=== PATIENT | female | born 1990 | race Caucasian/White ===

== ENCOUNTER → 2017-10-04 | Outpatient (REF) | payer MEDICAID ==
[2015-07-12 10:28] VITALS: BMI 23.6
[~2017-10-04] MED LIST: ACET-1718 PO; CIP500 PO; CODE118S5 PO; FERR159T PO; HYDR-385 PO; IBUP800T37 PO; KET10 PO; LAM25 PO; LOR5 PO; LOR5/325 PO; MULT-1335 PO; PREN1TAB44 PO; PROM-110 PO
[2017-10-04 16:09] LABS: PLATELET COUNT, AUTOMATED 286 K/uL (150-450)
== END ==
PROVIDERS: ATTEND Physician Assistant Medical
DX: R10.9 Unspecified abdominal pain (principal)
CPT/HCPCS: 82040; 82247; 82310; 82374; 82435; 82565; 82947; 84075; 84132; 84155; 84295; 84450; 84460; 84520; 85025

== ENCOUNTER → 2017-10-11 | Outpatient (REF) | payer OTHER, MEDICAID ==
[2015-07-12 10:28] VITALS: BMI 23.6
== END ==
PROVIDERS: ATTEND Physician Assistant Medical
DX: R10.9 Unspecified abdominal pain (principal); R19.7 Diarrhea, unspecified
CPT/HCPCS: 82274; 83630; 87045; 87177

== ENCOUNTER 2018-01-05 14:19 | Emergency (ER) | payer OTHER, MEDICAID ==
[2015-07-12 10:28] VITALS: Wt 69.9 kg
[2018-01-05 15:07] LABS: PLATELET COUNT, AUTOMATED 302 K/uL (150-450)
--- NOTE | 2018-01-05 16:24 | ER Report ---
History and Physical Time Seen By MD: 14:22 Hx. 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 She states that it was just a small amount of blood with no clots or tissue noted. She states that she is 5-6 weeks . She denies any vaginal discharge. She has not noted any pelvic pain. She states that she had a few seconds of sharp right lower abdominal pain but since has resolved. She denies any nausea or vomiting. She denies any fever. She is . REVIEW OF SYSTEMS: Constitutional: No fever, no chills. Cardiovascular: No chest pain, no palpitations. Respiratory: No cough, no shortness of breath. Gastrointestinal: No abdominal pain, no vomiting. Genitourinary: No hematuria. Musculoskeletal: No back pain. Skin: No rashes. Neurological: No headache. Allergies: Coded Allergies: Sulfa (Sulfonamide Antibiotics) (Verified Allergy, Severe, ANAPHYLAXIS, 01/05/18) latex (Verified Allergy, Intermediate, RASH, 01/05/18) epidermal scaling and bleeding Home Meds Reported Medications Ferrous Sulfate, Dried (IRON) 159 Mg Tablet.er, 159 MG PO DAILY 04/12/15 Discontinued Scripts Hydrocodone Bit/Acetaminophen (HYDROCODON-ACETAMINOPHEN 5-325) 1 Each Tablet, 1 EACH PO Q4-6H Y for PAIN, #30 TAB Prov:LEELA AHMADI MD 11/28/16 Ketorolac Tromethamine (KETOROLAC TROMETHAMINE) 10 Mg Tab, 10 MG PO Q6H, #20 TAB Prov:LEELA AHMADI MD 11/28/16 Promethazine Hcl (PROMETHAZINE HCL) 25 Mg Tablet, 25 MG PO Q8H Y for NAUSEA/ VOMITING, #12 TAB Prov:ELSA ALLRED 11/22/16 Reviewed Nurses Notes: Yes Old Medical Records Reviewed: Yes Hx Smoking: Yes (2 1/2 yrs- 1 pack would last week and a half) Smoking Status: Former Smoker Exposure to Second Hand Smoke?: Yes Hx Substance Use Disorder: No Hx Alcohol Use: No Constitutional Vital Sign - Last 24 Hours 01/05/18 14:44 Temp 98.4 Pulse 94 Resp 16 B/P (MAP) 118/71 Pulse Ox 100 O2 Delivery Room Air Physical Exam General Appearance: The patient is alert, has no immediate need for airway protection and no signs of toxicity. Patient appears to be in no acute distress. Eyes: Pupils equal and round no pallor or injection. ENT, Mouth: Mucous membranes are moist. Respiratory: There are no retractions, lungs are clear to auscultation. Cardiovascular: Regular rate and rhythm. Gastrointestinal: Abdomen is soft and non tender, no masses, bowel sounds normal. Pelvic exam: The vulva was normal no lesions. The vagina did not have significant discharge. The cervix was closed no bleeding and no purulent drainage. The uterus was normal size and non tender. The adnexa had no masses and no tenderness. 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 Skin: Warm and dry, no rashes. Musculoskeletal: Neck is supple non tender. Extremities are nontender, nonswollen and have full range of motion. DIFFERENTIAL DIAGNOSIS: After history and physical exam differential diagnosis was considered for vaginal bleeding including but not limited to ectopic , menses, miscarriage, and dysfunctional uterine bleeding. Medical Decision Making Data Points Result Diagram: 01/05/18 1500 01/05/18 1500 Laboratory Hematology Test 01/05/18 15:00 01/05/18 15:25 Red Blood Count 4.88 M/uL (4.17-5.56) Mean Corpuscular Volume 85.7 fL (80.0-96.0) Mean Corpuscular Hemoglobin 29.5 pg (26.0-33.0) Mean Corpuscular Hemoglobin Concent 34.4 g/dL (32.0-36.0) Red Cell Distribution Width 15.2 % (11.5-14.5) Mean Platelet Volume 7.8 fL (7.2-11.1) Neutrophils (%) (Auto) 68.4 % (39.4-72.5) Lymphocytes (%) (Auto) 23.4 % (17.6-49.6) Monocytes (%) (Auto) 5.2 % (4.1-12.4) Eosinophils (%) (Auto) 2.2 % (0.4-6.7) Basophils (%) (Auto) 0.8 % (0.3-1.4) Nucleated RBC Relative Count (auto) 0.0 /100WBC Neutrophils # (Auto) 6.0 K/uL (2.0-7.4) Lymphocytes # (Auto) 2.1 K/uL (1.3-3.6) Monocytes # (Auto) 0.5 K/uL (0.3-1.0) Eosinophils # (Auto) 0.2 K/uL (0.0-0.5) Basophils # (Auto) 0.1 K/uL (0.0-0.1) Nucleated RBC Absolute Count (auto) 0.00 K/uL Sodium Level 141 mmol/L (137-145) Potassium Level 3.5 mmol/L (3.5-5.0) Chloride Level 107 mmol/L (98-107) Carbon Dioxide Level 22 mmol/L (22-31) Blood Urea Nitrogen 5 mg/dl (7-18) Creatinine 0.70 mg/dl (0.52-1.04) Glomerular Filtration Rate Calc > 60.0 Random Glucose 106 mg/dl (75-110) Calcium Level 8.8 mg/dl (8.4-10.2) Total Bilirubin 1.3 mg/dl (0.2-1.3) Aspartate Amino Transf (AST/SGOT) 23 U/L (0-35) Alanine Aminotransferase (ALT/SGPT) 23 U/L (0-56) Alkaline Phosphatase 70 U/L (0-126) Total Protein 7.2 g/dl (6.3-8.2) Albumin 4.0 g/dl (3.5-5.0) Human Chorionic Gonadotropin, Quant 32912 mIU/ml Urine Color Yellow Urine Clarity Clear Urine pH 6.0 pH (4.8-9.5) Urine Specific [place] 1.010 Urine Protein Negative mg/dL (NEGATIVE) Urine Glucose (UA) Negative mg/dL (NEGATIVE) Urine Ketones Negative mg/dL (NEGATIVE) Urine Blood Small (NEGATIVE) Urine Nitrite Negative (NEGATIVE) Urine Bilirubin Negative (NEGATIVE) Urine Urobilinogen 2.0 mg/dL (0.2-1.9) Urine Leukocyte Esterase Negative (NEGATIVE) Urine RBC <1 /HPF (0-2/HPF) Urine WBC 2 /HPF (0-5/HPF) Urine Squamous Epithelial Cells Many /LPF (</=FEW) Urine Transitional Epithelial Cells Few /LPF (NONE-FEW) Urine Bacteria Negative /HPF (NONE-FEW) Urine Mucus None /HPF (NONE-FEW) Chemistry Test 01/05/18 15:00 01/05/18 15:25 White Blood Count 8.8 k/uL (4.5-11.0) Red Blood Count 4.88 M/uL (4.17-5.56) Hemoglobin 14.4 g/dL (12.0-16.0) Hematocrit 41.8 % (34.0-47.0) Mean Corpuscular Volume 85.7 fL (80.0-96.0) Mean Corpuscular Hemoglobin 29.5 pg (26.0-33.0) Mean Corpuscular Hemoglobin Concent 34.4 g/dL (32.0-36.0) Red Cell Distribution Width 15.2 % (11.5-14.5) Platelet Count 302 K/uL (150-450) Mean Platelet Volume 7.8 fL (7.2-11.1) Neutrophils (%) (Auto) 68.4 % (39.4-72.5) Lymphocytes (%) (Auto) 23.4 % (17.6-49.6) Monocytes (%) (Auto) 5.2 % (4.1-12.4) Eosinophils (%) (Auto) 2.2 % (0.4-6.7) Basophils (%) (Auto) 0.8 % (0.3-1.4) Nucleated RBC Relative Count (auto) 0.0 /100WBC Neutrophils # (Auto) 6.0 K/uL (2.0-7.4) Lymphocytes # (Auto) 2.1 K/uL (1.3-3.6) Monocytes # (Auto) 0.5 K/uL (0.3-1.0) Eosinophils # (Auto) 0.2 K/uL (0.0-0.5) Basophils # (Auto) 0.1 K/uL (0.0-0.1) Nucleated RBC Absolute Count (auto) 0.00 K/uL Glomerular Filtration Rate Calc > 60.0 Calcium Level 8.8 mg/dl (8.4-10.2) Total Bilirubin 1.3 mg/dl (0.2-1.3) Aspartate Amino Transf (AST/SGOT) 23 U/L (0-35) Alanine Aminotransferase (ALT/SGPT) 23 U/L (0-56) Alkaline Phosphatase 70 U/L (0-126) Total Protein 7.2 g/dl (6.3-8.2) Albumin 4.0 g/dl (3.5-5.0) Human Chorionic Gonadotropin, Quant 92201 mIU/ml Urine Color Yellow Urine Clarity Clear Urine pH 6.0 pH (4.8-9.5) Urine Specific [place] 1.010 Urine Protein Negative mg/dL (NEGATIVE) Urine Glucose (UA) Negative mg/dL (NEGATIVE) Urine Ketones Negative mg/dL (NEGATIVE) Urine Blood Small (NEGATIVE) Urine Nitrite Negative (NEGATIVE) Urine Bilirubin Negative (NEGATIVE) Urine Urobilinogen 2.0 mg/dL (0.2-1.9) Urine Leukocyte Esterase Negative (NEGATIVE) Urine RBC <1 /HPF (0-2/HPF) Urine WBC 2 /HPF (0-5/HPF) Urine Squamous Epithelial Cells Many /LPF (</=FEW) Urine Transitional Epithelial Cells Few /LPF (NONE-FEW) Urine Bacteria Negative /HPF (NONE-FEW) Urine Mucus None /HPF (NONE-FEW) Urinalysis Test 01/05/18 15:25 Urine Color Yellow Urine Clarity Clear Urine pH 6.0 pH (4.8-9.5) Urine Specific [place] 1.010 Urine Protein Negative mg/dL (NEGATIVE) Urine Glucose (UA) Negative mg/dL (NEGATIVE) Urine Ketones Negative mg/dL (NEGATIVE) Urine Blood Small (NEGATIVE) Urine Nitrite Negative (NEGATIVE) Urine Bilirubin Negative (NEGATIVE) Urine Urobilinogen 2.0 mg/dL (0.2-1.9) Urine Leukocyte Esterase Negative (NEGATIVE) Urine RBC <1 /HPF (0-2/HPF) Urine WBC 2 /HPF (0-5/HPF) Urine Squamous Epithelial Cells Many /LPF (</=FEW) Urine Transitional Epithelial Cells Few /LPF (NONE-FEW) Urine Bacteria Negative /HPF (NONE-FEW) Urine Mucus None /HPF (NONE-FEW) EKG/Imaging Imaging Pelvic US: IMPRESSION: 1. There is intrauterine . The is in the mid endometrium just at the dividing a portion of the bicornuate appearance of the uterus. A heart tones could be visualized however cannot be obtained by M-mode. This is most likely due to very early . However suggest close follow- up to assess for early viable . 2. Right ovary is normal. Left ovary could not be visualized. 3. There may be mild increase in pelvic vasculature which is nonspecific but could be due to pelvic congestion syndrome. I called report to ERIN GANN at 01/05/2018 4:41 PM. Report Dictated By: Phil Wynn at 01/05/2018 4:35 PM Report E-Signed By: Phil Wynn at 01/05/2018 4:42 PM ED Course/Re-evaluation ED Course Will obtain labs and pelvic ultrasound. - 01/05/2018 4:55:52 pm - discussed all labs and imaging with patient. There is intrauterine noted. No abnormality noted. All labs are essentially normal. Her cervical os is closed. Discussed that this could just be a normal also could be a threatened given her symptoms thus far however seems to be fairly minimal bleeding at this time and no active bleeding noted now. Decision to Disposition Date: Jan 05, 2018 Decision to Disposition Time: 16:56 Depart Departure Latest Vital Signs Vital Signs Date Time Temp Pulse Resp B/P (MAP) Pulse Ox O2 Delivery O2 Flow Rate FiO2 01/05/18 14:44 98.4 94 16 118/71 100 Room Air Impression: Primary Impression: First trimester bleeding Condition: Improved Disposition: HOME OR SELF-CARE Patient Instructions: Dysfunctional Uterine Bleeding (ED), First Trimester (ED) Additional Instructions: Stay well-hydrated. Follow-up with your OB in 2-3 days. If having any worsening or concerning symptoms may return to the emergency department. ERIN GANN PA-C Jan 05, 2018 16:24
--- NOTE | 2018-01-05 16:44 | RADIOLOGY IMAGING REPORT ---
FACILITY: [facility] [place] PATIENT NAME: Genet Villanueva : 1990 MR: [id number] V: [id number] EXAM DATE: ORDERING PHYSICIAN: ERIN GANN TECHNOLOGIST: Location: [facility] Patient: Genet Villanueva : 1990 Visit/Account:[id number] Date of Sevice: 01/05/2018 OB Ultrasound < 14 weeks Additional Pertinent history: Vaginal bleeding. Early . COMPARISON STUDIES: None available FINDINGS: Gestational sac: intrauterine and unremarkable Yolk sac: Visualized pole: Visualized cardiac activity: heart tones were identified but were unable to be captured on M-mode. Estimated gestational age: 5 weeks and 6 days based on average [place]-rump length 2.3 mm. MAT: 08/26/2018 by clinical and 08/30/2017 by ultrasound. Subchorionic hemorrhage: none Uterus: The uterus appears to show a bicornuate appearance. The gestational sac is at the proximal po rtion of the bicornuate in the midline, the mid endometrium. There appears to be a vaginal cyst measu ring 1 cm. Maternal ovaries: Right ovary is normal with normal blood flow. Left ovary was not visualized. Adnexa: No adnexal mass lesion or focal abnormality. There may be mildly increased pelvic vasculature present. Free pelvic fluid: none IMPRESSION: 1. There is intrauterine . The is in the mid endometrium just at the dividing a po rtion of the bicornuate appearance of the uterus. A heart tones could be visualized however can not be obtained by M-mode. This is most likely due to very early . However suggest close fol low-up to assess for early viable . 2. Right ovary is normal. Left ovary could not be visualized. 3. There may be mild increase in pelvic vasculature which is nonspecific but could be due to pelvic c ongestion syndrome. I called report to ERIN GANN at 01/05/2018 4:41 PM. Report Dictated By: Phil Wynn at 01/05/2018 4:35 PM Report E-Signed By: Phil Wynn at 01/05/2018 4:42 PM WSN:[id number]
[2018-01-05 17:10] VITALS: BP 95/67
== END 2018-01-05 17:16 | disposition home or self-care (01) ==
LOC: ER 14:38
DX: O20.9 Hemorrhage in early pregnancy, unspecified (principal); Z3A.01 Less than 8 weeks gestation of pregnancy
CPT/HCPCS: 76817; 81001; 82040; 82247; 82310; 82374; 82435; 82565; 82947; 84075; 84132; 84155; 84295; 84450; 84460; 84520; 84702; 85025; 99284

== ENCOUNTER 2018-01-25 14:34 | Outpatient (RCR) | payer OTHER, MEDICAID ==
[2015-07-12 10:28] VITALS: Wt 75.9 kg
[2018-01-10 12:03] VITALS: BP 107/64
[2018-01-10 12:52] LABS: PLATELET COUNT, AUTOMATED 273 K/uL (150-450)
--- NOTE | 2018-01-10 16:48 | ONCOLOGY CONSULTATION ---
EVENT DATE January 10, 2018 REFERRING PHYSICIAN SHIRA Calderón REASON FOR CONSULTATION Evaluation and management of high vitamin B12. HISTORY OF PRESENT ILLNESS Patient is a 27-year-old female with insignificant past medical history who was found on multiple occasions to have high vitamin B12 level. Her B12 level on November 21, 2017 was 1474, and on November 21, 2017 it was 1516. As per patient, she was on multivitamins which were stopped around two years ago. Patient is asymptomatic and denies any constitutional symptoms. PAST MEDICAL HISTORY Insignificant. PAST SURGICAL HISTORY 1. Eye surgery for lazy eye. 2. Cholecystectomy on November 28, 2016. 3. Appendectomy on November 28, 2016. SOCIAL HISTORY Patient is single with two children. 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 Denies any abuse of tobacco, alcohol or illicit drugs. FAMILY HISTORY Maternal great grandmother and maternal grandfather both had cancer, but she does not know exactly the type. CURRENT MEDICATIONS Ferrous sulfate 159 mg tablet daily. ALLERGIES SULFA, and she does not know exactly the reaction. REVIEW OF SYSTEMS CONSTITUTIONAL: No appetite or weight change. No fever, chills or sweating. No recent infection. HEENT: Ears: No tinnitus or hearing problem. Nose: No nasal discharge or epistaxis. Throat: No sore throat or mouth ulcers. Eyes: No diplopia or visual changes. RESPIRATORY: No shortness of breath. No cough, expectoration or hemoptysis. CARDIOVASCULAR: No chest pain, orthopnea, or paroxysmal nocturnal dyspnea (PND) . No edema. No palpitations. GASTROINTESTINAL: She has occasional nausea or vomiting. No diarrhea or constipation. No change in bowel movements. No heartburn or swallowing difficulties. No abdominal pain. No jaundice. No hematemesis, melena or rectal bleeding. GENITOURINARY: No hematuria or dysuria. MUSCULOSKELETAL: No pain in the muscles, joints or bones. NEUROLOGICAL: No tingling or numbness in the hands or feet. No headaches or convulsions. HEMATOLOGIC/LYMPHATIC: No bleeding. She bruises easily. No weakness or fatigue. No enlarged lymph nodes. SKIN: No skin rash or lumps. PSYCHIATRIC: No anxiety or depression. PHYSICAL EXAMINATION GENERAL: Looks stable. Well-developed, well-nourished, and in no acute distress. VITAL SIGNS: Blood pressure 107/64, pulse 82 per minute, respirations 16 per minute, temperature 97.3, pulse ox 96% on room air. HEENT: Head: Atraumatic. No sinus tenderness to palpation. Eyes: No icterus or conjunctivitis. Mouth and Throat: No oral thrush or mucositis. NECK: Supple. No cervical or supraclavicular lymphadenopathy. LUNGS: Clear to auscultation and percussion bilaterally. HEART: Regular rate and rhythm. No gallops, murmurs, clicks or rubs. ABDOMEN: Soft and lax. No tenderness. No hepatosplenomegaly. No masses. EXTREMITIES: No cyanosis, clubbing or edema. LYMPHATICS: No peripheral lymphadenopathy. NEUROLOGICAL: Conscious, alert and oriented times three. No focal motor or sensory deficits. PSYCHIATRIC: Mood and affect appear normal. SKIN: No skin rash, bruise or purpuric eruption. ASSESSMENT 1. High level of vitamin B12 around 1500. As vitamin B12 is a water soluble vitamin, I do not think it can be deposited in the body, so it will not be harmful and excess vitamin B12 would be secreted in the urine. The patient was on multivitamins which were stopped around two years ago, and the stores of vitamin B12 may take three years to start to deplete. There was association between myeloproliferative disorder and high vitamin B12, and for this reason I am planning to check her CBC to see if there will be any problem with that in her blood count. If there will be high white count or platelet or red blood cells, then I will investigate for myeloproliferative disorder, but if the CBC comes back normal, no further workup will be required. I will repeat her vitamin B12 level and I will also check her methylmalonic acid assay. I explained that to the patient and she is agreeable with the plan of management. I am planning to see her in a week for further evaluation and management. PLAN 1. CBC. 2. Vitamin B12 level. 3. Methylmalonic acid assay. 4. Patient to return in one week for further evaluation and management. 5. Patient is to contact us for any new concern or complaints. RENALDOD
[2018-01-25 14:44] VITALS: BP 105/65
--- NOTE | 2018-01-25 18:00 | ONCOLOGY FOLLOW UP NOTE ---
EVENT DATE: January 25, 2018 DIAGNOSIS High level of vitamin B12. CHIEF COMPLAINT Patient is here today for followup of her high vitamin B12 level. HEMATOLOGY HISTORY Patient is a 27-year-old female with insignificant past medical history who was found on multiple occasions to have high vitamin B12 level. Her B12 level on November 21, 2017 was 1474, and on November 21, 2017 it was 1516. As per patient, she was on multivitamins which were stopped around two years ago. Patient is asymptomatic and denies any constitutional symptoms. Repeat CBC showed white count 7.8, hemoglobin 13.6, hematocrit 39.7, platelets 273,000. Vitamin B12 level was within the normal range at 865, and methylmalonic acid was normal at less than 0.10. HISTORY OF PRESENT ILLNESS The patient is here today for followup of her high vitamin B12 level. She is totally asymptomatic today. PAST MEDICAL HISTORY Insignificant. PAST SURGICAL HISTORY 1. Eye surgery for lazy eye. 2. Cholecystectomy on November 28, 2016. 3. Appendectomy on November 28, 2016. SOCIAL HISTORY Patient is single with two children. 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 Denies any abuse of tobacco, alcohol or illicit drugs. FAMILY HISTORY Maternal great grandmother and maternal grandfather both had cancer, but she does not know exactly the type. CURRENT MEDICATIONS Ferrous sulfate 159 mg tablet daily. ALLERGIES SULFA, and she does not know exactly the reaction. REVIEW OF SYSTEMS CONSTITUTIONAL: No appetite or weight change. No fever, chills or sweating. No recent infection. HEENT: Ears: No tinnitus or hearing problem. Nose: No nasal discharge or epistaxis. Throat: No sore throat or mouth ulcers. Eyes: No diplopia or visual changes. RESPIRATORY: No shortness of breath. No cough, expectoration or hemoptysis. CARDIOVASCULAR: No chest pain, orthopnea, or paroxysmal nocturnal dyspnea (PND) . No edema. No palpitations. GASTROINTESTINAL: She has occasional nausea or vomiting. No diarrhea or constipation. No change in bowel movements. No heartburn or swallowing difficulties. No abdominal pain. No jaundice. No hematemesis, melena or rectal bleeding. GENITOURINARY: No hematuria or dysuria. MUSCULOSKELETAL: No pain in the muscles, joints or bones. NEUROLOGICAL: No tingling or numbness in the hands or feet. No headaches or convulsions. HEMATOLOGIC/LYMPHATIC: No bleeding. She bruises easily. No weakness or fatigue. No enlarged lymph nodes. SKIN: No skin rash or lumps. PSYCHIATRIC: No anxiety or depression. PHYSICAL EXAMINATION GENERAL: Looks stable. Well-developed, well-nourished, and in no acute distress. VITAL SIGNS: Blood pressure 105/65, pulse 85 per minute, respirations 16 per minute, temperature 98.6, pulse ox 98% on room air. HEENT: Head: Atraumatic. No sinus tenderness to palpation. Eyes: No icterus or conjunctivitis. Mouth and Throat: No oral thrush or mucositis. NECK: Supple. No cervical or supraclavicular lymphadenopathy. LUNGS: Clear to auscultation and percussion bilaterally. HEART: Regular rate and rhythm. No gallops, murmurs, clicks or rubs. ABDOMEN: Soft and lax. No tenderness. No hepatosplenomegaly. No masses. EXTREMITIES: No cyanosis, clubbing or edema. LYMPHATICS: No peripheral lymphadenopathy. NEUROLOGICAL: Conscious, alert and oriented times three. No focal motor or sensory deficits. PSYCHIATRIC: Mood and affect appear normal. SKIN: No skin rash, bruise or purpuric eruption. DIAGNOSTIC DATA CBC showed white count 7.8, hemoglobin 13.6, hematocrit 39.7, platelets 273, 000. Vitamin B12 was 865. Methylmalonic acid less than 0.10. ASSESSMENT High level of vitamin B12 around 1500. Repeat B12 level came back normal at 865 and methylmalonic acid assay was normal at less than 0.10. Her CBC was totally normal with white count 7.8, hemoglobin 13.6 and platelet count 273, 000. No further workup is required. I am planning to refer the patient back to her primary care provider. I will be more than happy to see her in the future for any hemorrhoidal abnormalities. PLAN 1. Patient to continue followup with her primary care provider. 2. I will be more than happy to see the patient in the future if she will develop any hematological abnormalities. 3. Patient is to contact us for any new concern or complaints. ARY
== END 2018-03-01 10:32 | disposition home or self-care (01) ==
LOC: ONC 14:34
PROVIDERS: ATTEND Internal Medicine Hematology
DX: R74.8 Abnormal levels of other serum enzymes (principal)
CPT/HCPCS: 36415; 82607; 83921; 85025; 99202; 99212

== ENCOUNTER 2018-06-06 18:13 | Emergency (ER) | payer MEDICAID, OTHER ==
[2015-07-12 10:28] VITALS: Wt 88.0 kg
[2018-06-06] MEDS ORDERED: PREN-127 PO (18:23)
--- NOTE | 2018-06-06 18:23 | ER Report ---
History and Physical Time Seen By MD: 18:23 Hx. of Stated Complaint: Patient with bump near rectum. States started today and it hurts to sit HPI/ROS CHIEF COMPLAINT: swelling and pain at rectum HISTORY OF PRESENT ILLNESS: This is a 27 year old female. She is having pain in the rectal area with an area of pain and swelling. Hurts to sit. No drainage. No fevers or chills. She is . Allergies: Coded Allergies: Sulfa (Sulfonamide Antibiotics) (Verified Allergy, Severe, ANAPHYLAXIS, 06/06/18) latex (Verified Allergy, Intermediate, RASH, 06/06/18) epidermal scaling and bleeding Home Meds Reported Medications Vits W-Ca,Fe,Fa(<1MG) ( VITAMINS) 1 Each Tablet, 1 EACH PO DAILY, TAB 06/06/18 Discontinued Reported Medications Ferrous Sulfate, Dried (IRON) 159 Mg Tablet.er, 159 MG PO DAILY 04/12/15 Reviewed Nurses Notes: Yes Hx Smoking: Yes (2 1/2 yrs- 1 pack would last week and a half) Smoking Status: Former Smoker Exposure to Second Hand Smoke?: Yes Hx Substance Use Disorder: No Hx Alcohol Use: No Constitutional Vital Sign - Last 24 Hours 06/06/18 06/06/18 18:18 18:45 Temp 98.1 Pulse 99 90 Resp 16 16 B/P (MAP) 131/83 96/68 (77) Pulse Ox 96 96 O2 Delivery Room Air Physical Exam General: Alert, anxious. Rectum: Has a thrombosed hemorrhoid which is swollen and painful. No other problems noted. Medical Decision Making ED Course/Re-evaluation ED Course Procedure: Evacuation of thrombosed external hemorrhoid. The patient has a painful thrombosed external hemorrhoid. Based on the patient's significant pain from hemorrhoid we elected to evacuate the thrombosis. I informed the patient of potential complications including infection and bleeding and the patient agreed to the procedure. The patient was placed on their side. The area was prepped with betadyne and anesthetized with lidocaine and epinephrine. An incision was made in the thrombosed hemorrhoid and the thrombosis was evacuated. A dressing was applied. There were no complications. The procedure was performed by myself. Decision to Disposition Date: Jun 06, 2018 Decision to Disposition Time: 18:38 Depart Departure Latest Vital Signs Vital Signs Date Time Temp Pulse Resp B/P (MAP) Pulse Ox O2 Delivery O2 Flow Rate FiO2 06/06/18 18:45 90 16 96/68 (77) 96 06/06/18 18:18 98.1 Room Air Impression: Primary Impression: External thrombosed hemorrhoids Condition: Improved Disposition: HOME OR SELF-CARE Patient Instructions: Thrombosed Hemorrhoid (ED) Additional Instructions: Keep the area clean. Several times a day for the next few days, you can sit in a hot/warm bath and soak the area for at least 30 minutes. After bowel movements, you can do soaks, or use a soft wet wipe to clean the area. For inflammation, itching or pain, you can use some Preparation H or simple Hydrocortisone cream. Both are available over the counter. Return for any increasing pain, swelling or fevers/chills. MARIEBTH MICHAELS MD Jun 06, 2018 18:23
[2018-06-06 18:45] VITALS: BP 96/68
== END 2018-06-06 18:46 | disposition home or self-care (01) ==
LOC: ER 18:40
DX: K64.5 Perianal venous thrombosis (principal)
CPT/HCPCS: 99283